=== PATIENT | male | born 1985 | race American Indian/Alaskan Native ===

== ENCOUNTER 2018-10-21 04:19 | Emergency (ER) | payer OTHER ==
[2018-10-21 04:43] VITALS: BP 124/73; PULSE 58; TEMP 97.9; BMI 28.3
[2018-10-21] MEDS ORDERED: PSEUDOEPHEDRINE HCL 60 MG TABLET ONE (05:24)
[2018-10-21] MEDS ORDERED: PSEUDOEPHEDRINE HCL 60 MG TABLET PO ONE (05:30)
--- NOTE | 2018-10-21 05:32 | PDOC ---
History of Present Illness - General Chief Complaint: Cold Symptoms Stated Complaint: NOSE CONGESTION Time Seen by Provider: 10/21/18 04:54 History Source: Patient, Spouse ( present at bedside.) Exam Limitations: No Limitations - History of Present Illness Initial Comments: HPI: 33 y/o male presenting to [facility] ER complaining of bilateral nasal congestion with sinus pressure. Pt woke from sleep and found he was unable to breath through either nare. Was able to breath through his mouth but then his throat started to hurt. Trialed Zicam nasal spray without relief. Has not trialed any other OTC medications. Denies fevers, chills, or chest pain. No sick contacts. Reports this is an acute on chronic problem for the last year. Was evaluated by PCP several months ago but failed to f/u. Has never been evaluated by ENT. Previously evaluated at this department for chest pain after snorting cocaine. States last time he used was over a year ago. Social Hx: - Non-smoker - Returned from [facility] in Apr 2018. No additional travel. 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 Found sitting upright on edge of hospital bed. Alert and oriented x4. Answered all questions appropriately and completely. Speech was non -labored, non-pressured. Head: Normocephalic. No obvious external signs of trauma. Nontender frontal and maxillary sinuses. Eyes: Sclerae white. Ears: Hearing grossly intact. Nose: No nasal discharge. Hyponasal voice. No deviated septum. Mucosa pink and well appearing. Throat: Oral cavity and pharynx normal. No inflammation, swelling, exudate, or lesions. Teeth and gingiva in good general condition. Neck: Supple, trachea is midline. No cervical or supraclavicular lymphadenopathy. Cardiovascular / Chest: Regular rate and regular rhythm. No murmur, rubs, clicks , or gallops. Peripheral pulses: radial pulses full. Respiratory: Breathing unlabored. Equal chest rise and fall. Clear to auscultation bilaterally. No stridor, no wheezing, no rhonchi. Neuro: Alert and oriented. Moving all four extremities spontaneously. Skin: [place], warm, and dry. Psych: Affect: appropriate. Mood: normal. MDM: *Reviewed vital signs, nursing notes, and prior visit documentation (if available). Previously healthy 33 y/o male presenting with bilateral nasal congestion and sinus pressure for the past few hours. H/o of similar but failed to f/u in clinic. Denies recent cocaine abuse. Afebrile. Vitals unremarkable for hypotension or tachycardia. Physical exam as described above. Suspect likely acute sinusitis. Ordered Pseudoephedrine. Pt reassessed and reports improved. Will prescribe outpatient course of pseudoephedrine. Entered ENT referral. Discussed physical exam findings with pt. Answered all questions. Provided return precautions. Pt expressed verbal understanding and agreement with plan to discharge home with outpatient follow up. Misha Buitrago M.D., PGY2 Emergency Medicine Resident Past History - Past Medical History Allergies/Adverse Reactions: Allergies Allergy/AdvReac Type Severity Reaction Status Date / Time No Known Allergies Allergy Verified 09/27/17 07:10 Home Medications: Ambulatory Orders Pseudoephedrine HCl [Sudafed] 60 mg PO BID #20 tablet 10/21/18 COPD: No - Immunization History Immunization Up to Date: Yes - Suicide/Smoking/Psychosocial Hx Smoking History: Unknown if ever smoked Have you smoked in the past 12 months: No Information on smoking cessation initiated: No Hx Alcohol Use: No Drug/Substance Use Hx: No *Physical Exam - Vital Signs Last Vital Signs Temp Pulse Resp BP Pulse Ox 97.9 F 58 L 17 124/73 98 10/21/18 04:36 10/21/18 04:36 10/21/18 04:36 10/21/18 04:36 10/21/18 04:36 ED Treatment Course - Medications Given in the ED: ED Medications Discontinued Medications Generic Name Dose Route Start Last Admin Trade Name Freq PRN Reason Stop Dose Admin Pseudoephedrine HCl 60 mg 10/21/18 05:30 10/21/18 05:26 Sudafed - PO 10/21/18 05:31 60 mg ONCE ONE Administration *DC/Admit/Observation/Transfer Diagnosis at time of Disposition: Nasal congestion - Discharge Dispostion Disposition: HOME Condition at time of disposition: Good Decision to Admit order: No - Prescriptions Prescriptions: Pseudoephedrine HCl [Sudafed] 60 mg PO BID #20 tablet - Referrals Referrals: Marita Graves MD [Primary Care Provider] - Juan Diego White MD [Staff Physician] - - Patient Instructions Printed Discharge Instructions: DI for Sinusitis Additional Instructions: You were seen today for nasal congestion. You likely have acute sinusitis. I have sent a prescription for Pseudoephedrine to your pharmacy. Take as directed on the package insert. Do not exceed the recommended dosage. Follow up with your primary care doctor within the next 3-4 days. You will need to call to make an appointment. The number is included in this packet. You can also follow up with an ENT doctor. I have placed a referral for you to see Dr. White. You will need to call to make an appointment. The number is included in this packet. Go to the nearest emergency department if your condition worsens or you feel like you need additional emergency evaluation. Print Language: ICELANDIC - Post Discharge Activity Forms/Work/School Notes: Back to Work
== END 2018-10-21 05:49 | disposition home or self-care (01) ==
LOC: SUPCPDRO 04:19 → JER 04:19
DX: J34.89 Other specified disorders of nose and nasal sinuses (principal)
CPT/HCPCS: 99281-25

== ENCOUNTER 2018-12-25 12:59 | Inpatient (IN) | payer OTHER ==
[2018-12-25] MEDS ORDERED: IBUPROFEN 600 MG TABLET (FP) PO ONE ×2 (14:18→14:28)
[2018-12-25] MEDS ORDERED: SODIUM CHLORIDE 1,000 ML IV STA (14:18)
--- NOTE | 2018-12-25 14:18 | PDOC ---
History of Present Illness - General Chief Complaint: Edema Stated Complaint: LT FOOT PAIN Time Seen by Provider: 12/25/18 13:29 History Source: Patient Exam Limitations: No Limitations - History of Present Illness Initial Comments: 12/25/18 14:13 33 yo male pmh HLD and R forefoot amputation 2016 after an accident presents to the ED with 1 week of F/C, cough, yellow sputum production (with new blood tinge this am) along with right foot swelling, redness and pain. Pt states he was in [facility] for work, URI symptoms began prior to return to the [facility] (returned 1 week ago), has tried theraflu however symptoms have progressively worsened and now admits to bright red blood tinge sputum this am. Pt states he fell [place] the plane leading to right medial ankle pain and states swelling, pain and redness/warmth worsening over the past week. Past History - Past Medical History Allergies/Adverse Reactions: Allergies Allergy/AdvReac Type Severity Reaction Status Date / Time No Known Allergies Allergy Verified 09/27/17 07:10 Home Medications: Ambulatory Orders Pseudoephedrine HCl [Sudafed] 60 mg PO BID #20 tablet 10/21/18 COPD: No - Immunization History Immunization Up to Date: Yes - Psycho Social/Smoking Cessation Hx Smoking History: Current every day smoker Have you smoked in the past 12 months: No Information on smoking cessation initiated: Yes Hx Alcohol Use: No Drug/Substance Use Hx: No Review of Systems - Review of Systems Constitutional: Yes: Chills, Fever HEENTM: Yes: Other (bloody sputum, cough). No: Ear Discharge, Nose Congestion Respiratory: Yes: Productive cough. No: Shortness of Breath, Wheezing Cardiac (ROS): Yes: Edema (right stump). No: Chest Pain ABD/GI: No: Constipated, Diarrhea, Nausea, Vomiting : No: Burning, Dysuria, Frequency, Flank Pain Musculoskeletal: No: Back Pain Integumentary: No: Change in Color Neurological: No: Headache, Numbness, Paresthesia, Weakness *Physical Exam - Vital Signs Last Vital Signs Temp Pulse Resp BP Pulse Ox 97.5 F L 89 20 153/94 99 12/25/18 13:02 12/25/18 13:02 12/25/18 13:02 12/25/18 13:02 12/25/18 13:02 - Physical Exam General Appearance: Yes: Nourished, Appropriately Dressed HEENT: positive: EOMI, Pharynx Normal, Hearing Grossly Normal, Other (hemoptysis ). negative: Sinus Tenderness Neck: positive: Supple. negative: Carotid bruit Respiratory/Chest: positive: Lungs Clear, Normal Breath Sounds. negative: Respiratory Distress, Rapid RR, Crackles, Rales, Rhonchi, Stridor, Wheezing Cardiovascular: positive: Regular Rhythm, Regular Rate, S1, S2. negative: Edema , JVD, Murmur Vascular Pulses: Dorsalis-Pedis (R): 4+, Doralis-Pedis (L): 4+ Gastrointestinal/Abdominal: positive: Flat, Soft. negative: Pulsatile Mass, Distended, Guarding, Rebound, Tenderness Musculoskeletal: negative: CVA Tenderness Extremity: positive: Normal Capillary Refill, Normal Inspection, Normal Range of Motion Integumentary: positive: Dry, Warm, Other (erythema to dorsum of foot with tenderness and small chronic appearing punctate wound. No area of fluctuance or drainage ) Neurologic: positive: Fully Oriented, Alert, Normal Mood/Affect, Normal Response , Motor Strength 07/21 ED Treatment Course - LABORATORY CBC & Chemistry Diagram: 12/25/18 14:15 12/25/18 14:15 - RADIOLOGY Radiology Studies Ordered: Category Date Time Status LOWER EXTREMITY CT W/O CONTR [CT] Stat CT Scan 12/25/18 14:02 Ordered CHEST X-RAY PORTABLE* [RAD] Stat Radiology 12/25/18 13:59 Ordered Medical Decision Making - Medical Decision Making 12/25/18 14:28 33 yo male pmh HLD and R forefoot amputation 2016 after an accident presents to the ED with 1 week of F/C, cough, yellow sputum production (with new blood tinge this am) along with right foot swelling, redness and pain. Pt states he was in [facility] for work, URI symptoms began prior to return to the [place] (returned 1 week ago), has tried theraflu however symptoms have progressively worsened and now admits to bright red blood tinge sputum this am. Pt states he fell on the plane leading to right medial ankle pain and states swelling, pain and redness/warmth worsening over the past week. plan to weight d-dimer results, review CXR and determine if CTA of chest required for PE r/o vs PNA D dimer neg WBC 11.7 12/25/18 18:[address] Henson states pt requires admission for infection of RLE with antibiotics Consulted Dr. Pimentel in Podiatry, states he will come assess pt in the ED and would like an MRI with Contrast done to r/o osteo/abscess and will take to OR for I&D in the AM if needed Case presented to Dr. Garcia, agrees to have pt accepted to med surg Discharge - Discharge Information Problems reviewed: Yes Clinical Impression/Diagnosis: Infection (chronic) of amputation stump Condition: Stable - Admission Yes - Follow up/Referral - Patient Discharge Instructions - Post Discharge Activity
[2018-12-25 14:34] LABS: BASO % 0.4 % (0-2.0); EOS % 0.1 % (0-4.5); HEMATOCRIT 43.9 % (35.4-49); LYMPH % 6.4 % (8-40); MCH 29.8 pg (25.7-33.7); MCHC 34.3 g/dl (32.0-35.9); MEAN PLT VOLUME 9.4 fl (7.5-11.1); MONO % 6.8 % (3.8-10.2); NEUT % 86.3 % (42.8-82.8); PLATELET COUNT 313 K/MM3 (134-434); RBC 5.05 M/mm3 (4.00-5.60); RDW 13.6 % (11.9-15.9); WHITE BLOOD COUNT 11.7 K/mm3 (4.0-10.0)
[2018-12-25] MEDS ORDERED: ALBUTEROL SO4 2.5/IPRATROPIUM 0.5 INH SOL 3 ML VIAL.NEB. NEB ONE ×2 (14:35→14:49)
[2018-12-25] MEDS ORDERED: ACETAMINOPHEN 325 MG TABLET (FP) PO ONE (14:37)
--- NOTE | 2018-12-25 14:37 | PDOC ---
Documentation entered by Josiah John SCRIBE, acting as scribe for Faye Cole MD. Faye Cole MD: This documentation has been prepared by the Dora murillo Xhesika, SCRIBE, under my direction and personally reviewed by me in its entirety. I confirm that the documentation accurately reflects all work, treatment, procedures, and medical decision making performed by me. Attending Attestation - Resident Resident Name: Alex Cruz - ED Attending Attestation I have performed the following: I have examined & evaluated the patient, The case was reviewed & discussed with the resident, I agree w/resident's findings & plan - HPI HPI: 12/25/18 14:23 The patient is a 33 year old male with a significant past medical history of HLD and R foot amputation (secondary to forklift accident in 2016) who presents to the ED with 1 week of subjective fever, chills, productive cough and R foot pain and swelling. cough notable for progressive blood tinged and yellow mucus. Patient notes he had a trip to [facility] for work, came back a week ago, however, his symptoms began prior to his return to the [place]. Pt notes he tried theraflu with no improvement of symptoms. he tripped with his prosthesis in place while at the airport ~ 1 week ago, since then right stump pain and swelling. Allergies: None Past Medical History: HLD and R foot amputation Social history: Lives with family. Current everyday smoker Surgical history: S/p R foot amputation secondary to forklift accident in 2016 Meds: none 12/25/18 14:35 - Physicial Exam PE: 12/25/18 14:24 Agree with the resident's HPI and PE as documented in the electronic medical record. NAD, well appearing, EOMI, PERRL, nl conjunctiva, anicteric; neck supple. lungs diminished breath sounds, scant wheeze on expiration. RRR, abdomen soft nontender. Back nontender. MEAD x4, no focal neuro deficits. No peripheral edema. normal color for ethnicity, WWP. no calf tenderness. no LE edema. soft compartment of right stump. Right distal foot amputation, tender to palpation over the stump with palp swelling, old surgical scars present. No drainage or wounds appreciated. 12/25/18 14:33 12/25/18 14:58 12/25/18 18:31 - Medical Decision Making 12/25/18 14:37 Vital Signs Temp Pulse Resp BP Pulse Ox 97.5 F L 89 20 153/94 99 12/25/18 13:02 12/25/18 13:02 12/25/18 13:02 12/25/18 13:02 12/25/18 13:02 Differential diagnosis includes viral syndrome, infection, bronchiectasis, bronchitis, pneumonia, pleurisy. Soft tissue infection, stump wound, contusion , hematoma. Vital signs are within normal limits, afebrile, hemodynamically appropriate. Basic labs and lites are also within normal limits, cultures are pending. X- ray imaging, dimer to evaluate for possible PE given recent travel and now hemoptysis but symptoms are more consistent with a infection given he has cough and subjective fevers. Chest x-ray will also check for active pulmonary TB. neg for mass, infection/infiltrate or effusion, normal cardiac silhouette xray s/p amputation at midfoot, no collection, no bony erosions labs and lytes - neg dimer, unlikely PE given analgesia, duoneb, reassess, abx CT foot with ?fluid collection vs abscess vs phlegmon. IV ancef and vancomycin for empiric coverage, including MRSA admit for pain control, foot infection, possible I&D, medical management - call to brim setter Dr Dela Cruz, will come to eval and decide on plan/intervention admit to Dr Garcia service. 12/25/18 18:29 Heart Score/ECG Review #1 ECG reviewed & interpreted by me at: 15:40 General ECG Interpretation: Sinus Rhythm, Normal Rate, Normal Intervals Compared to previous ECG there are: Previous ECG unavail 12/25/18 16:17 nonspecific T wave abnormalities in III only, no ST elevations or depressions
[2018-12-25] MEDS ORDERED: ACETAMINOPHEN 325 MG TABLET (FP) ONE (14:49)
[2018-12-25] MEDS ORDERED: morphine CARPU-JECT 4 MG/1 ML DISP.SYRIN IVPUSH ONE (14:57)
[2018-12-25 15:01] LABS: ALBUMIN 3.8 g/dl (3.4-5.0); BILIRUBIN,TOTAL 0.5 mg/dL (0.2-1); BLOOD UREA NITROGEN 19.7 mg/dL (7-18); CALCIUM 9.4 mg/dL (8.5-10.1); POTASSIUM 4.3 mmol/L (3.5-5.1); TOT PROT 8.4 g/dl (6.4-8.2)
[2018-12-25 15:18] LABS: ERYTHROCYTE SEDIMENTATION RATE 77 mm/hr (0-10)
[2018-12-25] MEDS ORDERED: morphine SULFATE 4 MG/ML VIAL ONE (15:23)
[2018-12-25] MEDS ORDERED: HYDROmorphone HCL CARPU-JECT 2 MG/1 ML DISP.SYRIN IVPUSH ONE (16:58)
[2018-12-25] MEDS ORDERED: KETOROLAC TROMETHAMINE 15 MG/ML VIAL IVPUSH ONE (16:58)
[2018-12-25] MEDS ORDERED: VANCOMYCIN 1,500 MG in DEXTROSE 5%-WATER - 250 ML IVPB ONE (16:59)
[2018-12-25] MEDS ORDERED: HYDROmorphone HCl 2 MG/ML VIAL ONE (17:15)
[2018-12-25] MEDS ORDERED: KETOROLAC TROMETHAMINE 15 MG/ML VIAL ONE (17:15)
[2018-12-25] MEDS ORDERED: VANCOMYCIN HCL 1,500 MG in DEXTROSE 5%-WATER - 250 ML IVPB ONE (18:41)
[2018-12-25] MEDS ORDERED: VANCOMYCIN HCL 1,500 MG in DEXTROSE 5%-WATER - 500 ML IVPB ONE (18:42)
--- NOTE | 2018-12-25 19:22 | CONSULT ---
Consult Consult Specialty:: PODIATRY Referred by:: maureen Reason for Consultation:: Right foot possible abscess - History of Present Illness Chief Complaint: 33 y/o male presents and seen inthe ER with swelling and severe pain on the right foot. Also cmplaints of yellow and blood tinged sputum. States since roughly 1 weekt he foot has started having severe pain and being swolen and red. Is s/p traumatic TMA with donor flap placement which has healed nicely. States is needing a SULLY as well to release pressure as the flap regularly breaks down but this time has continued pain and sweling for longer than usual. Denies any other complaints. - History Source History Provided By: Patient Limitations to Obtaining History: No Limitations - Alcohol/Substance Use Hx Alcohol Use: No - Smoking History Smoking history: Current every day smoker Have you smoked in the past 12 months: No Home Medications - Allergies Allergies/Adverse Reactions: Allergies Allergy/AdvReac Type Severity Reaction Status Date / Time No Known Allergies Allergy Verified 09/27/17 07:10 - Home Medications Home Medications: Ambulatory Orders Pseudoephedrine HCl [Sudafed] 60 mg PO BID #20 tablet 10/21/18 Review of Systems - Review of Systems Musculoskeletal: reports: Other (Right: traumuatic TMA, donor flap noted going from plantar distal site up onto the dorsum of ankle, induration noted to the plantar flap of the graft with a small wound noted distal plantarly no purulence noted, plantar medially along healed incision with severe POP some level of fluctuance, mild erythema, mild edema, no streaking, no drainage noted at this time. foot warm to touch and palpable pulses.) Neurological: reports: No Symptoms Physical Exam Vital Signs: Vital Signs Temperature 97.5 F L 12/25/18 13:02 Pulse Rate 64 12/25/18 16:45 Respiratory Rate 18 12/25/18 16:45 Blood Pressure 120/71 12/25/18 16:45 O2 Sat by Pulse Oximetry (%) 98 12/25/18 16:45 Labs: CBC, BMP 12/25/18 14:15 12/25/18 14:15 Assessment/Plan A: Possible abscess right foot P: Evaluated and reviewed MRI with contrast has been ordered to eval for abscess and will evaluate tomorrow CT to me inconclusive for origin Xray negative for any gas Wbc 11.7 Iv abx per ID Will follow up tomorrow and if + for actual abscess depending on area can do bedside needle drainage vs taking to the OR for open I and D on sunday AM Will follow thank you for this consult.
--- NOTE | 2018-12-25 19:38 | HP ---
Admitting History and Physical - Primary Care Physician PCP: Iram Garcia - Admission History of Present Illness: 33 yo male pmh HLD and R forefoot amputation 2016 after an accident presents to the ED with 1 week of F/C, cough, yellow sputum production (with new blood tinge this am) along with right foot swelling, redness and pain. Pt states he was in [facility] for work, URI symptoms began prior to return to the [facility] (returned 1 week ago), has tried theraflu however symptoms have progressively worsened and now admits to bright red blood tinge sputum this am. Pt states he fell on the plane leading to right medial ankle pain and states swelling, pain and redness/warmth worsening over the past week. - Smoking History Smoking history: Current every day smoker Have you smoked in the past 12 months: No - Alcohol/Substance Use Hx Alcohol Use: No Home Medications - Allergies Allergies/Adverse Reactions: Allergies Allergy/AdvReac Type Severity Reaction Status Date / Time No Known Allergies Allergy Verified 09/27/17 07:10 - Home Medications Home Medications: Ambulatory Orders NK [No Known Home Medication] 12/25/18 Physical Examination Vital Signs: Vital Signs Temperature 97.5 F L 12/25/18 13:02 Pulse Rate 64 12/25/18 16:45 Respiratory Rate 18 12/25/18 16:45 Blood Pressure 120/71 12/25/18 16:45 O2 Sat by Pulse Oximetry (%) 98 12/25/18 16:45 Constitutional: Yes: No Distress HENT: Yes: Atraumatic Neck: Yes: Supple Cardiovascular: Yes: Regular Rate and Rhythm Respiratory: Yes: CTA Bilaterally Gastrointestinal: Yes: Normal Bowel Sounds Extremities: Yes: Other (R foot / stump abcess) Neurological: Yes: Alert, Oriented Labs: CBC, BMP 12/25/18 14:15 12/25/18 14:15 Problem List - Problems (1) Infection (chronic) of amputation stump Assessment/Plan: for aspiration of abcess on iv bax prn pain meds Code(s): T87.40 - INFECTION OF AMPUTATION STUMP, UNSPECIFIED EXTREMITY (2) Nasal congestion Code(s): R09.81 - NASAL CONGESTION Assessment/Plan Laboratory Tests 12/25/18 12/25/18 12/25/18 14:15 14:15 14:15 WBC 11.7 H RBC 5.05 Hgb 15.0 Hct 43.9 MCV 87.0 MCH 29.8 MCHC 34.3 RDW 13.6 Plt Count 313 D MPV 9.4 Absolute Neuts (auto) 10.1 H Neutrophils % 86.3 H Lymphocytes % 6.4 L D Monocytes % 6.8 Eosinophils % 0.1 Basophils % 0.4 Nucleated RBC % 0 ESR 77 H D-Dimer Sodium 139 Potassium 4.3 Chloride 103 Carbon Dioxide 30 Anion Gap 6 L BUN 19.7 H Creatinine 1.0 Est GFR (CKD-EPI)AfAm 115.72 Est GFR (CKD-EPI)NonAf 99.85 Random Glucose 92 Calcium 9.4 Total Bilirubin 0.5 AST 25 ALT 34 Alkaline Phosphatase 118 H C-Reactive Protein 12.4 H Total Protein 8.4 H Albumin 3.8 12/25/18 14:15 WBC RBC Hgb Hct MCV MCH MCHC RDW Plt Count MPV Absolute Neuts (auto) Neutrophils % Lymphocytes % Monocytes % Eosinophils % Basophils % Nucleated RBC % ESR D-Dimer 322 Sodium Potassium Chloride Carbon Dioxide Anion Gap BUN Creatinine Est GFR (CKD-EPI)AfAm Est GFR (CKD-EPI)NonAf Random Glucose Calcium Total Bilirubin AST ALT Alkaline Phosphatase C-Reactive Protein Total Protein Albumin Active Medications Generic Name Dose Route Start Last Admin Trade Name Freq PRN Reason Stop Dose Admin Cefazolin Sodium 1 gm in 50 mls @ 100 mls/hr 12/26/18 10:00 Ancef 1 Gm Premixed Ivpb - IVPB DAILY RICHAR Vancomycin HCl 1,500 mg/ 500 mls @ 250 mls/2 hr 12/25/18 18:42 12/25/18 19:04 Dextrose IVPB 12/25/18 22:40 250 mls/2 hr ONCE ONE Administration Protocol Active Medications Generic Name Dose Route Start Last Admin Trade Name Freq PRN Reason Stop Dose Admin Acetaminophen 650 mg 12/26/18 21:29 Tylenol - PO Q6H PRN FEVER Fentanyl 50 mcg 12/26/18 21:29 Sublimaze Injection - IVPUSH [id number] PRN PAIN-PACU ORDER X 4 DOSES ONLY Heparin Sodium (Porcine) 5,000 unit 12/26/18 22:00 12/27/18 10:03 Heparin - SQ 5,000 unit BID RCIHAR Administration Hydromorphone HCl 2 mg 12/26/18 21:29 12/27/18 15:19 Dilaudid Vial - IVPB 2 mg Q4H PRN Administration PAIN 4-8 Lactated Ringer's 1,000 mls @ 75 mls/hr 12/26/18 21:29 12/26/18 21:40 Lactated Ringers Solution IV 0 mls ASDIR RICHAR Administration Cefazolin Sodium 1 gm in 50 mls @ 100 mls/hr 12/27/18 18:00 12/27/18 17:18 Ancef 1 Gm Premixed Ivpb - IVPB 100 mls/hr Q8H-IV RICHAR Administration Ondansetron HCl 4 mg 12/26/18 21:29 Zofran Injection IVPUSH Q6H PRN NAUSEA AND/OR VOMITING Oxycodone HCl 5 mg 12/26/18 21:29 12/27/18 10:12 Roxicodone - PO 5 mg Q4H PRN Administration PAIN LEVEL 1-3
[2018-12-25] MEDS ORDERED: ACETAMINOPHEN 325 MG TABLET (FP) PO PRN (19:39)
[2018-12-25] MEDS: HEPARIN NA (PORCINE) 5,000 UNITS/ML 1ML VIAL SQ SCH (22:37)
[2018-12-25] MEDS: HYDROmorphone HCl 2 MG/ML VIAL IVPB PRN (23:54)
[2018-12-26 00:11] VITALS: BMI 27.4
[2018-12-26] MEDS: HYDROmorphone HCl 2 MG/ML VIAL IVPB PRN ×2 (06:36→10:48)
[2018-12-26 09:08] LABS: BASO % 0.4 % (0-2.0); EOS % 0.2 % (0-4.5); HEMATOCRIT 42.2 % (35.4-49); HEMOGLOBIN 14.6 GM/dL (11.7-16.9); LYMPH % 9.2 % (8-40); MCH 30.3 pg (25.7-33.7); MCHC 34.6 g/dl (32.0-35.9); MEAN CELL VOLUME 87.6 fl (80-96); MEAN PLT VOLUME 9.3 fl (7.5-11.1); NEUT % 85.2 % (42.8-82.8); PLATELET COUNT 311 K/MM3 (134-434); RBC 4.81 M/mm3 (4.00-5.60); RDW 13.7 % (11.9-15.9); WHITE BLOOD COUNT 8.9 K/mm3 (4.0-10.0)
[2018-12-26] MEDS ORDERED: CEFAZOLIN 1 GM/D5W 1 GM/50 ML BAG IVPB SCH (10:00)
--- NOTE | 2018-12-26 10:22 | PN ---
Progress Note (short form) - Note Progress Note: PODIATRY 33 y/o male s/p right foot traumatic TMA after accident seen with pain and swelling of the right stump site. Pain mostly just proximal to the flap placement. had MRI done last night. States pain is decreased and redness down but still uncomfortable. Denies any f/c/n/v/sob. O: Right foot with free graft site with decreased swelling, compelte neuropathy of the free graft, just plantar proximal at the incision line mild erythema and pain on palpation in that area, no open wound, no purulence, no streaking, no ascending cellulitis; erythema mildly improved today A: Cellulitis of TMA stump//Free graft P: Evaluated and reveiwed MRI read not yet done yet; personal review at this time shows alot of inflammation and edema in the free graft Will follow today and await read of the MRI; if true abscess is seen will plan for the OR tomorrow to open and flush Cont Iv abx per ID. Will follow.
[2018-12-26] MEDS: HEPARIN NA (PORCINE) 5,000 UNITS/ML 1ML VIAL SQ SCH ×2 (10:50→22:19)
[2018-12-26 11:15] LABS: ALBUMIN 3.7 g/dl (3.4-5.0); BILIRUBIN,TOTAL 0.3 mg/dL (0.2-1); BLOOD UREA NITROGEN 16.3 mg/dL (7-18); CALCIUM 9.1 mg/dL (8.5-10.1); CREATININE 0.9 mg/dL (0.55-1.3); POTASSIUM 4.2 mmol/L (3.5-5.1); TOT PROT 7.9 g/dl (6.4-8.2)
--- NOTE | 2018-12-26 12:20 | EKG ---
Test Reason : Blood Pressure : / mmHG Vent. Rate : 074 BPM Atrial Rate : 074 BPM P-R Int : 118 ms QRS Dur : 082 ms QT Int : 376 ms P-R-T Axes : 046 049 023 degrees QTc Int : 417 ms POOR DATA QUALITY, INTERPRETATION MAY BE ADVERSELY AFFECTED NORMAL SINUS RHYTHM NORMAL ECG WHEN COMPARED WITH ECG OF 27-SEP-2017 06:45, NO SIGNIFICANT CHANGE WAS FOUND Confirmed by JOSUE RODRIGUEZ, AN ([id number]) on 12/26/2018 12:20:05 PM Referred By: Confirmed By:AN SALAS MD
--- NOTE | 2018-12-26 14:00 | CON.ID ---
Consult Consult Specialty:: infectious diseases Referred by:: Reason for Consultation:: cellulitis of the amputated foot,pain - History of Present Illness Chief Complaint: swelling of the foot ,pain and tenderness History of Present Illness: 33 y/o male presents and seen inthe ER with swelling and severe pain on the right foot. patient also mentions that he has some sputum which is blood tinged pain and swelling ahs been going on for some time and the leg became red and the patient decided to come to the hospital Is s/p traumatic TMA with donor flap placement which has healed nicely. States is needing a SULLY as well to release pressure as the flap regularly breaks down but this time has continued pain and swelling for longer than usual. Denies any other complaints. patient also has a small opening on the foot which according to him does not drain anything - History Source History Provided By: Patient Limitations to Obtaining History: No Limitations - Alcohol/Substance Use Hx Alcohol Use: No - Smoking History Smoking history: Never smoked Have you smoked in the past 12 months: No Home Medications - Allergies Allergies/Adverse Reactions: Allergies Allergy/AdvReac Type Severity Reaction Status Date / Time No Known Allergies Allergy Verified 09/27/17 07:10 - Home Medications Home Medications: Ambulatory Orders NK [No Known Home Medication] 12/25/18 Review of Systems - Review of Systems Constitutional: reports: No Symptoms Eyes: reports: No Symptoms HENT: reports: No Symptoms Neck: reports: No Symptoms Cardiovascular: reports: No Symptoms Respiratory: reports: No Symptoms Gastrointestinal: reports: No Symptoms Genitourinary: reports: No Symptoms Musculoskeletal: reports: Muscle Pain Integumentary: reports: Erythema, Other Neurological: reports: No Symptoms Endocrine: reports: No Symptoms Hematology/Lymphatic: reports: No Symptoms Psychiatric: reports: No Symptoms Physical Exam Vital Signs: Vital Signs Temperature 98.0 F 12/26/18 05:50 Pulse Rate 81 12/26/18 10:00 Respiratory Rate 18 12/26/18 10:00 Blood Pressure 143/83 12/26/18 10:00 O2 Sat by Pulse Oximetry (%) 98 12/25/18 23:39 Constitutional: Yes: Well Nourished, Calm, Mild Distress Eyes: Yes: Conjunctiva Clear HENT: Yes: Atraumatic, Normocephalic Neck: Yes: Supple, Trachea Midline Cardiovascular: Yes: Regular Rate and Rhythm Respiratory: Yes: Regular, CTA Bilaterally Gastrointestinal: Yes: Normal Bowel Sounds, Soft Musculoskeletal: Yes: WNL Extremities: Yes: Erythema (at the amputated site), Other Wound/Incision: Yes: Other (a small spot on the plantar aspect worry is if the infection is collecting) Neurological: Yes: Alert, Oriented Psychiatric: Yes: Alert, Oriented Labs: CBC, BMP 12/26/18 08:27 12/26/18 08:27 Assessment/Plan after examining the foot i am worried that there might be a collection and the spot is from where he might have drained also cellulitis noted will start him on abx and also i think patient should get and mri of the foot to see if there is any collection once we have the final results we will decide further plan
--- NOTE | 2018-12-26 14:02 | PN ---
Progress Note, Physician History of Present Illness: patient c/o of severe pain podiatry note noted - Current Medication List Current Medications: Active Medications Acetaminophen (Tylenol -) 650 mg PO Q6H PRN PRN Reason: FEVER Heparin Sodium (Porcine) (Heparin -) 5,000 unit SQ BID [facility] Last Admin: 12/26/18 10:50 Dose: 5,000 unit Hydromorphone HCl (Dilaudid Vial -) 1 mg IVPB Q4H PRN PRN Reason: PAIN LEVEL 4-6 Last Admin: 12/26/18 10:48 Dose: 1 mg Cefazolin Sodium (Ancef 1 Gm Premixed Ivpb -) 1 gm in 50 mls @ 100 mls/hr IVPB DAILY [facility] Last Admin: 12/26/18 10:50 Dose: 100 mls/hr - Objective Vital Signs: Vital Signs Temperature 98.0 F 12/26/18 05:50 Pulse Rate 81 12/26/18 10:00 Respiratory Rate 18 12/26/18 10:00 Blood Pressure 143/83 12/26/18 10:00 O2 Sat by Pulse Oximetry (%) 98 12/25/18 23:39 Constitutional: Yes: No Distress, Calm Cardiovascular: Yes: Regular Rate and Rhythm Respiratory: Yes: Regular, CTA Bilaterally Gastrointestinal: Yes: Normal Bowel Sounds, Soft Musculoskeletal: Yes: WNL Extremities: Yes: Erythema, Other Neurological: Yes: Alert, Oriented Psychiatric: Yes: Alert, Oriented Labs: CBC, BMP 12/26/18 08:27 12/26/18 08:27 Assessment/Plan continue abx await for aspiration of the collection rest as per the team
[2018-12-26] MEDS ORDERED: HYDROmorphone HCl 2 MG/ML VIAL IVPB PRN (14:14)
[2018-12-26] MEDS ORDERED: LIDOCAINE HCL 2% (20ML MULTI-DOSE VIAL) NR ONE ×3 (14:15→21:29)
--- NOTE | 2018-12-26 15:05 | CONSULT ---
Consult Consult Specialty:: Podiatry Reason for Consultation:: Emergent cellulitis abscess right foot-2nd opinion. - History of Present Illness Chief Complaint: Cellulitis abscess right foot. History of Present Illness: Has had a taumatic amputation in 2016. Fork lift crushed his foot. Fell 2 weeks ago. Presented to ER with red hot swollen foot with abscess. - History Source History Provided By: Patient - Alcohol/Substance Use Hx Alcohol Use: No - Smoking History Smoking history: Never smoked Have you smoked in the past 12 months: No Home Medications - Allergies Allergies/Adverse Reactions: Allergies Allergy/AdvReac Type Severity Reaction Status Date / Time No Known Allergies Allergy Verified 09/27/17 07:10 - Home Medications Home Medications: Ambulatory Orders NK [No Known Home Medication] 12/25/18 Physical Exam Vital Signs: Vital Signs Temperature 98.0 F 12/26/18 14:11 Pulse Rate 58 L 12/26/18 14:11 Respiratory Rate 18 12/26/18 10:00 Blood Pressure 118/73 12/26/18 14:11 O2 Sat by Pulse Oximetry (%) 98 12/25/18 23:39 Musculoskeletal: Yes: Other (+cellulitis ascending right foot, +abscess right foot, +severe tenderness) Labs: CBC, BMP 12/26/18 08:27 12/26/18 08:27 Assessment/Plan abscess cellulitis Called his [employer] Portal Developer and discussed cased and we agreed that patient needs I&D today rather than tomorrow. Patient had last meal around 12pm. Will sign off case at this time. Please re-consult if necessary. NPO.
--- NOTE | 2018-12-26 18:20 | PN ---
Progress Note, Physician - Current Medication List Current Medications: Active Medications Acetaminophen (Tylenol -) 650 mg PO Q6H PRN PRN Reason: FEVER Heparin Sodium (Porcine) (Heparin -) 5,000 unit SQ BID [facility] Last Admin: 12/26/18 10:50 Dose: 5,000 unit Hydromorphone HCl (Dilaudid Vial -) 2 mg IVPB Q4H PRN PRN Reason: PAIN 4-8 Last Admin: 12/26/18 14:24 Dose: 2 mg Cefazolin Sodium (Ancef 1 Gm Premixed Ivpb -) 1 gm in 50 mls @ 100 mls/hr IVPB DAILY [facility] Last Admin: 12/26/18 10:50 Dose: 100 mls/hr - Objective Vital Signs: Vital Signs Temperature 98.0 F 12/26/18 14:11 Pulse Rate 58 L 12/26/18 14:11 Respiratory Rate 18 12/26/18 10:00 Blood Pressure 118/73 12/26/18 14:11 O2 Sat by Pulse Oximetry (%) 98 12/25/18 23:39 Constitutional: Yes: No Distress HENT: Yes: Atraumatic Neck: Yes: Supple Cardiovascular: Yes: Regular Rate and Rhythm Respiratory: Yes: CTA Bilaterally Gastrointestinal: Yes: Normal Bowel Sounds Extremities: Yes: Other (R foot abcess) Neurological: Yes: Alert, Oriented Labs: CBC, BMP 12/26/18 08:27 12/26/18 08:27 Problem List - Problems (1) Infection (chronic) of amputation stump Assessment/Plan: for aspiration of abcess d/w podiatry Code(s): T87.40 - INFECTION OF AMPUTATION STUMP, UNSPECIFIED EXTREMITY (2) Nasal congestion Code(s): R09.81 - NASAL CONGESTION
[2018-12-26] MEDS ORDERED: oxyCODONE HCL 5 MG TABLET PO PRN (19:54)
[2018-12-26] MEDS ORDERED: ONDANSETRON 4 MG/2 ML VIAL IVPUSH PRN ×2 (19:54→21:29)
[2018-12-26] MEDS ORDERED: LACTATED RINGERS SOLUTION 1,000 ML IV SCH ×2 (20:00→21:29)
[2018-12-26] MEDS ORDERED: MIDAZOLAM HCL 2 MG/2 ML SINGLE DOSE VIAL ONE (20:16)
[2018-12-26] MEDS ORDERED: ceFAZolin SODIUM 1 GM VIAL IVPB ONE (20:25)
[2018-12-26] MEDS ORDERED: LIDOCAINE HCL 2% (50ML VIAL) INF ONE (20:32)
[2018-12-26] MEDS ORDERED: PROPOFOL 20 ML ONE (20:39)
[2018-12-26] MEDS ORDERED: BACITRACIN 50,000 UNITS VIAL TP ONE (20:40)
[2018-12-26] MEDS ORDERED: BUPIVACAINE HCL/PF 0.5% (5 MG/ML) 30 ML VIAL IJ ONE (20:50)
--- NOTE | 2018-12-26 21:00 | OP ---
Operative Note - Note: Operative Date: 12/26/18 Pre-Operative Diagnosis: right foot abscess Operation: right foot incision and drainge. Findings: see dictation Post-Operative Diagnosis: Same as Pre-op Surgeon: Bret Pimentel Anesthesia: Local, MAC Specimens Removed: wound culture Estimated Blood Loss (mls): 10 Operative Report Dictated: Yes
--- NOTE | 2018-12-26 22:26 | OP ---
DATE OF OPERATION: 12/26/2018 PREOPERATIVE DIAGNOSIS: Right foot abscess. POSTOPERATIVE DIAGNOSIS: Right foot abscess. PROCEDURE PERFORMED: Right foot incision and drainage. SURGEON: Bret Pimentel DPM ANESTHESIA: Local with IV sedation. INDICATION: The patient is a 33-year-old male with the above mentioned diagnosis. The patient requires immediate surgical intervention for the conditions listed above. After careful explanation of the risks, benefits, and complications for the proposed procedure including graft failure, the patient signed the consent form. All questions and concerns were addressed at this time prior to taking patient to the OR. P.o. status was verified. Preoperative antibiotics were given. OPERATIVE PROCEDURE: Patient brought to operating room table and placed on operating table in the supine position. A pneumatic ankle tourniquet was utilized on the induction of IV sedation, local injection of 10 mL of 2% lidocaine plain was injected into the patient's nerve without complication. Following local anesthetic, the left foot was prepped and draped in normal sterile manner and the procedure began. Procedure number 1: Right foot incision and drainage at this time with the distal plantar aspect of the patient's right foot. It should be noted he has already had a traumatic transmetatarsal amputation with a free flap placement across the top of it at the most plantar aspect of this free flap, there was noted to be a large area, increasingly large abscess with some streaking erythema going along the mid foot plantarly at this time. An incision was made directly overlying the old incision, placement along where the flap met the plantar skin on the bottom of the foot. Immediately upon incising the skin on the plantar aspect, roughly 15 mL of seropurulent material drained out. The incision was then carried medially and laterally to the medial aspect of the foot and across the roughly central plantar aspect of the foot. The incision was then opened and roughly another 5 mL of purulent material was then expressed from the area; using manual decompression, all remaining pockets of seropurulence were then decompressed, and then at this time attention was directed to the plantar medial aspect of the foot, where there is noted to be some erythema. Utilizing Metzenbaum scissors and Premium elevator, the plantar aspect of the foot was explored, but there was no further purulent drainage to be noted at this time. It should be noted that unfortunately the flap viability on the plantar aspect is going to be questionable due to the breakdown in the underlying tissues from the infection which seems to have been present for quite a number of days and is just recently worsened. Following manual decompression, the wound was then copiously flushed with pulse lavage with bacitracin mixed 3 L of fluid was flushed to the bottom of the foot. Prior this, it should be noted wound cultures were obtained and sent for microbiology. Deep wound was then packed with iodoform packing and partially closed with 3-0 nylon, leaving open to tolerated anesthesia and procedure well. Patient was given 10 mL of 0.5% Marcaine plain block following the procedure, transferred to recovery room with vital signs stable and neurovascular status intact to right foot. The patient will need to be followed closely over the next couple of days for any further abscess formation versus graft failure. MARTHA TUCKER/[id number]
[2018-12-26] MEDS: oxyCODONE HCL 5 MG TABLET PO PRN (22:51)
[2018-12-27] MEDS: HYDROmorphone HCl 2 MG/ML VIAL IVPB PRN ×3 (03:07→20:01)
--- NOTE | 2018-12-27 08:04 | PN ---
Progress Note (short form) - Note Progress Note: 33 y /o male POD 1 right foot I and D at past amputation site. States feeling much better today. Pain level far decreased. Denies any other complaints. Is wondering about flap survivability. O: Incision plantar left foot with opening and packing in place centrally, packing pulled, no further purulence noted, mild erythema stillin plantar arch but no progression and much less POP noted, no streaking no malodor A: 33 y/o POD 1 right foot I and D P: Evaluated and reviewed will need to closely track progression and if any worsening again of redness may need secondary flush but today looking much improved will need to track flap viability; discussed with him and he will need f/u with wound care as well as should have f/u with plastic surgeon patient clinically improved follow cultures IV abx per ID will follow.
--- NOTE | 2018-12-27 08:45 | PN ---
Progress Note (short form) - Note Progress Note: POD1 s/p right foot debridement of infected amputation stump, under GA. Doing well today; pain is well controlled, VSS, no complaints noted. No anesthetic issues/complications noted.
[2018-12-27] MEDS ORDERED: DEXTROSE 5%-WATER - 50 ML IVPB ONE (09:59)
[2018-12-27] MEDS ORDERED: ceFAZolin SODIUM 1 GM VIAL ONE (09:59)
[2018-12-27] MEDS ORDERED: CEFAZOLIN 1 GM in DEXTROSE 5%-WATER - 50 ML IVPB SCH (10:00)
[2018-12-27] MEDS: HEPARIN NA (PORCINE) 5,000 UNITS/ML 1ML VIAL SQ SCH ×2 (10:03→22:07)
[2018-12-27] MEDS: oxyCODONE HCL 5 MG TABLET PO PRN ×2 (10:12→22:13)
--- NOTE | 2018-12-27 12:29 | PN ---
Progress Note, Physician History of Present Illness: stable no new issues patient got aspirated last night feels better - Current Medication List Current Medications: Active Medications Acetaminophen (Tylenol -) 650 mg PO Q6H PRN PRN Reason: FEVER Fentanyl (Sublimaze Injection -) 50 mcg IVPUSH [id number] PRN PRN Reason: PAIN-PACU ORDER X 4 DOSES ONLY Heparin Sodium (Porcine) (Heparin -) 5,000 unit SQ BID [facility] Last Admin: 12/27/18 10:03 Dose: 5,000 unit Hydromorphone HCl (Dilaudid Vial -) 2 mg IVPB Q4H PRN PRN Reason: PAIN 4-8 Last Admin: 12/27/18 03:07 Dose: 2 mg Lactated Ringer's (Lactated Ringers Solution) 1,000 mls @ 75 mls/hr IV [facility] Last Admin: 12/26/18 21:40 Dose: 0 mls Ondansetron HCl (Zofran Injection) 4 mg IVPUSH Q6H PRN PRN Reason: NAUSEA AND/OR VOMITING Oxycodone HCl (Roxicodone -) 5 mg PO Q4H PRN PRN Reason: PAIN LEVEL 1-3 Last Admin: 12/27/18 10:12 Dose: 5 mg - Objective Vital Signs: Vital Signs Temperature 98.4 F 12/27/18 06:00 Pulse Rate 58 L 12/27/18 06:00 Respiratory Rate 20 12/27/18 06:00 Blood Pressure 116/58 L 12/27/18 06:00 O2 Sat by Pulse Oximetry (%) 98 12/26/18 21:50 Constitutional: Yes: No Distress, Calm Cardiovascular: Yes: Regular Rate and Rhythm Respiratory: Yes: Regular, CTA Bilaterally Gastrointestinal: Yes: Normal Bowel Sounds, Soft Musculoskeletal: Yes: WNL Extremities: Yes: Other Wound/Incision: Yes: Dressing Dry and Intact Neurological: Yes: Alert, Oriented Psychiatric: Yes: Alert, Oriented Labs: CBC, BMP 12/26/18 08:27 12/26/18 08:27 Assessment/Plan patient doing post op well no issues await for cx report continue iv abx wound care rest as per the team
[2018-12-27] MEDS: CEFAZOLIN 1 GM/D5W 1 GM/50 ML BAG IVPB SCH (17:18)
--- NOTE | 2018-12-27 17:43 | PN ---
Progress Note, Physician - Current Medication List Current Medications: Active Medications Acetaminophen (Tylenol -) 650 mg PO Q6H PRN PRN Reason: FEVER Fentanyl (Sublimaze Injection -) 50 mcg IVPUSH [id number] PRN PRN Reason: PAIN-PACU ORDER X 4 DOSES ONLY Heparin Sodium (Porcine) (Heparin -) 5,000 unit SQ BID [facility] Last Admin: 12/27/18 10:03 Dose: 5,000 unit Hydromorphone HCl (Dilaudid Vial -) 2 mg IVPB Q4H PRN PRN Reason: PAIN 4-8 Last Admin: 12/27/18 15:19 Dose: 2 mg Lactated Ringer's (Lactated Ringers Solution) 1,000 mls @ 75 mls/hr IV ASDIR [facility] Last Admin: 12/26/18 21:40 Dose: 0 mls Cefazolin Sodium (Ancef 1 Gm Premixed Ivpb -) 1 gm in 50 mls @ 100 mls/hr IVPB Q8H-IV [facility] Last Admin: 12/27/18 17:18 Dose: 100 mls/hr Ondansetron HCl (Zofran Injection) 4 mg IVPUSH Q6H PRN PRN Reason: NAUSEA AND/OR VOMITING Oxycodone HCl (Roxicodone -) 5 mg PO Q4H PRN PRN Reason: PAIN LEVEL 1-3 Last Admin: 12/27/18 10:12 Dose: 5 mg - Objective Vital Signs: Vital Signs Temperature 98.2 F 12/27/18 10:00 Pulse Rate 98 H 12/27/18 10:00 Respiratory Rate 20 12/27/18 10:00 Blood Pressure 120/86 12/27/18 10:00 O2 Sat by Pulse Oximetry (%) 98 12/27/18 09:00 Constitutional: Yes: No Distress HENT: Yes: Atraumatic Neck: Yes: Supple Cardiovascular: Yes: Regular Rate and Rhythm Respiratory: Yes: CTA Bilaterally Gastrointestinal: Yes: Normal Bowel Sounds Extremities: Yes: Other (R foot in dressing) Neurological: Yes: Alert, Oriented Labs: CBC, BMP 12/26/18 08:27 12/26/18 08:27 Problem List - Problems (1) Infection (chronic) of amputation stump Assessment/Plan: s/p aspiration of abcess on iv bax prn pain meds Code(s): T87.40 - INFECTION OF AMPUTATION STUMP, UNSPECIFIED EXTREMITY (2) Nasal congestion Code(s): R09.81 - NASAL CONGESTION
[2018-12-28] MEDS: CEFAZOLIN 1 GM/D5W 1 GM/50 ML BAG IVPB SCH ×4 (01:27→17:22)
[2018-12-28] MEDS: HYDROmorphone HCl 2 MG/ML VIAL IVPB PRN ×4 (02:07→16:49)
[2018-12-28] MEDS: HEPARIN NA (PORCINE) 5,000 UNITS/ML 1ML VIAL SQ SCH ×2 (10:11→22:04)
[2018-12-28 12:31] LABS: BASO % 0.8 % (0-2.0); EOS % 4.2 % (0-4.5); HEMATOCRIT 41.5 % (35.4-49); HEMOGLOBIN 13.8 GM/dL (11.7-16.9); LYMPH % 39.1 % (8-40); MCH 29.3 pg (25.7-33.7); MCHC 33.3 g/dl (32.0-35.9); MEAN PLT VOLUME 9.4 fl (7.5-11.1); MONO % 9.9 % (3.8-10.2); PLATELET COUNT 296 K/MM3 (134-434); RBC 4.71 M/mm3 (4.00-5.60); RDW 13.3 % (11.9-15.9); WHITE BLOOD COUNT 8.3 K/mm3 (4.0-10.0)
--- NOTE | 2018-12-28 12:44 | PN ---
Progress Note, Physician - Current Medication List Current Medications: Active Medications Acetaminophen (Tylenol -) 650 mg PO Q6H PRN PRN Reason: FEVER Fentanyl (Sublimaze Injection -) 50 mcg IVPUSH [id number] PRN PRN Reason: PAIN-PACU ORDER X 4 DOSES ONLY Heparin Sodium (Porcine) (Heparin -) 5,000 unit SQ BID [facility] Last Admin: 12/28/18 10:11 Dose: 5,000 unit Hydromorphone HCl (Dilaudid Vial -) 2 mg IVPB Q4H PRN PRN Reason: PAIN 4-8 Last Admin: 12/28/18 12:33 Dose: 2 mg Cefazolin Sodium (Ancef 1 Gm Premixed Ivpb -) 1 gm in 50 mls @ 100 mls/hr IVPB Q8H-IV [facility] Last Admin: 12/28/18 10:09 Dose: 100 mls/hr Ondansetron HCl (Zofran Injection) 4 mg IVPUSH Q6H PRN PRN Reason: NAUSEA AND/OR VOMITING Oxycodone HCl (Roxicodone -) 5 mg PO Q4H PRN PRN Reason: PAIN LEVEL 1-3 Last Admin: 12/27/18 22:13 Dose: 5 mg - Objective Vital Signs: Vital Signs Temperature 98.7 F 12/28/18 05:15 Pulse Rate 90 12/28/18 05:15 Respiratory Rate 20 12/28/18 05:15 Blood Pressure 140/78 12/28/18 05:15 O2 Sat by Pulse Oximetry (%) 98 12/27/18 09:00 Constitutional: Yes: No Distress HENT: Yes: Atraumatic Neck: Yes: Supple Cardiovascular: Yes: Regular Rate and Rhythm Respiratory: Yes: CTA Bilaterally Extremities: Yes: Other (R foot in dressing) Neurological: Yes: Alert, Oriented Labs: CBC, BMP 12/28/18 11:30 Problem List - Problems (1) Infection (chronic) of amputation stump Assessment/Plan: s/p aspiration of abcess on iv bax prn pain meds Code(s): T87.40 - INFECTION OF AMPUTATION STUMP, UNSPECIFIED EXTREMITY (2) Nasal congestion Code(s): R09.81 - NASAL CONGESTION
[2018-12-28 12:59] LABS: ALBUMIN 3.3 g/dl (3.4-5.0); BILIRUBIN,TOTAL 0.2 mg/dL (0.2-1); BLOOD UREA NITROGEN 8.1 mg/dL (7-18); CREATININE 0.9 mg/dL (0.55-1.3); POTASSIUM 4.7 mmol/L (3.5-5.1); TOT PROT 6.9 g/dl (6.4-8.2)
--- NOTE | 2018-12-28 13:59 | PN ---
Progress Note, Physician Chief Complaint: 33 y/o post op right foot I and D. Feeling much better. Up in bed. Complains of lower back pain. Denies any f/c/n/v/sob. - Current Medication List Current Medications: Active Medications Acetaminophen (Tylenol -) 650 mg PO Q6H PRN PRN Reason: FEVER Fentanyl (Sublimaze Injection -) 50 mcg IVPUSH [id number] PRN PRN Reason: PAIN-PACU ORDER X 4 DOSES ONLY Heparin Sodium (Porcine) (Heparin -) 5,000 unit SQ BID [facility] Last Admin: 12/28/18 10:11 Dose: 5,000 unit Hydromorphone HCl (Dilaudid Vial -) 2 mg IVPB Q4H PRN PRN Reason: PAIN 4-8 Last Admin: 12/28/18 12:33 Dose: 2 mg Cefazolin Sodium (Ancef 1 Gm Premixed Ivpb -) 1 gm in 50 mls @ 100 mls/hr IVPB Q8H-IV [facility] Last Admin: 12/28/18 10:09 Dose: 100 mls/hr Ondansetron HCl (Zofran Injection) 4 mg IVPUSH Q6H PRN PRN Reason: NAUSEA AND/OR VOMITING Oxycodone HCl (Roxicodone -) 5 mg PO Q4H PRN PRN Reason: PAIN LEVEL 1-3 Last Admin: 12/27/18 22:13 Dose: 5 mg - Objective Vital Signs: Vital Signs Temperature 97.8 F 12/28/18 10:00 Pulse Rate 88 12/28/18 10:00 Respiratory Rate 18 12/28/18 10:00 Blood Pressure 136/78 12/28/18 10:00 O2 Sat by Pulse Oximetry (%) 98 12/27/18 09:00 Constitutional: Yes: Well Nourished Extremities: Yes: Other (right incison site intact with sutures, some keratosis and hardening of the distal flap site noted, no further erythema and much decreased, no drainage, no pain on palpation, edema decreased, no signs of residual infection) Labs: CBC, BMP 12/28/18 11:30 12/28/18 11:36 Assessment/Plan 33 y/o s/p right foot I and D P: Evaluated and reviewed Discussed with Sixto; MRSA seen Will need Iv abx per ID for length Incision site healing well but concern for long wall shear operator survivability of the flap discussed with patient upon d/c would recc follow up with [facility] but also highly recc follow up with plastic surgeon in [facility] who did primary free flap. He understands While admitted can change with wet to dry daily and then leave c/d/i upon d/c until follow up. Wound stable from podiatry standpoint.
[2018-12-28] MEDS: oxyCODONE HCL 5 MG TABLET PO PRN (19:47)
[2018-12-28] MEDS: VANCOMYCIN 1 GRAM (PRE-DOCKED) 1,000 MG/250 ML BAG IVPB SCH (20:33)
[2018-12-29] MEDS: HEPARIN NA (PORCINE) 5,000 UNITS/ML 1ML VIAL SQ SCH ×2 (09:28→21:12)
[2018-12-29] MEDS: VANCOMYCIN 1 GRAM (PRE-DOCKED) 1,000 MG/250 ML BAG IVPB SCH ×2 (09:28→21:12)
[2018-12-29] MEDS: HYDROmorphone HCl 2 MG/ML VIAL IVPB PRN ×2 (11:24→15:21)
[2018-12-29] MEDS: oxyCODONE HCL 5 MG TABLET PO PRN ×2 (14:15→21:20)
[2018-12-29] MEDS ORDERED: AZITHROMYCIN 500 MG TABLET PO ONE (15:19)
--- NOTE | 2018-12-29 15:19 | PN ---
Progress Note, Physician History of Present Illness: Pt is alert, without acute distress. Has been complaining of cough. Reports hemoptysis yesterday but none today. [place] better after breathing treatment. Remains afebrile. No other complaints. Pain in LE controlled. - Current Medication List Current Medications: Active Medications Acetaminophen (Tylenol -) 650 mg PO Q6H PRN PRN Reason: FEVER Fentanyl (Sublimaze Injection -) 50 mcg IVPUSH [id number] PRN PRN Reason: PAIN-PACU ORDER X 4 DOSES ONLY Heparin Sodium (Porcine) (Heparin -) 5,000 unit SQ BID [facility] Last Admin: 12/29/18 09:28 Dose: 5,000 unit Hydromorphone HCl (Dilaudid Vial -) 2 mg IVPB Q4H PRN PRN Reason: PAIN 4-8 Last Admin: 12/29/18 11:24 Dose: 2 mg Vancomycin HCl (Vancomycin (Pre-Docked)) 1,000 mg in 250 mls @ 166.667 mls/hr IVPB Q12H [facility]; Protocol Last Admin: 12/29/18 09:28 Dose: 166.667 mls/hr Ondansetron HCl (Zofran Injection) 4 mg IVPUSH Q6H PRN PRN Reason: NAUSEA AND/OR VOMITING Oxycodone HCl (Roxicodone -) 5 mg PO Q4H PRN PRN Reason: PAIN LEVEL 1-3 Last Admin: 12/29/18 14:15 Dose: 5 mg - Objective Vital Signs: Vital Signs Temperature 98.7 F 12/29/18 14:53 Pulse Rate 98 H 12/29/18 14:53 Respiratory Rate 20 12/29/18 05:03 Blood Pressure 107/70 12/29/18 14:53 O2 Sat by Pulse Oximetry (%) 98 12/27/18 09:00 Constitutional: Yes: No Distress, Calm Eyes: Yes: Conjunctiva Clear HENT: Yes: WNL Cardiovascular: Yes: Regular Rate and Rhythm Respiratory: Yes: CTA Bilaterally Gastrointestinal: Yes: Normal Bowel Sounds, Soft Genitourinary: Yes: WNL Extremities: Yes: WNL Wound/Incision: Yes: Dressing Dry and Intact Labs: CBC, BMP 12/28/18 11:30 12/28/18 11:36 Microbiology 12/25/18 14:15 Blood - Peripheral Venous Blood Culture - Preliminary NO GROWTH OBTAINED AFTER 96 HOURS, INCUBATION TO CONTINUE FOR 1 DAYS. 12/25/18 14:00 Blood - Peripheral Venous Blood Culture - Preliminary NO GROWTH OBTAINED AFTER 96 HOURS, INCUBATION TO CONTINUE FOR 1 DAYS. 12/26/18 20:45 Foot - Right Gram Stain - Final 12/26/18 20:45 Foot - Right Wound Culture - Final Mr S Aureus - ....Imaging MRI: Report Reviewed Problem List - Problems (1) Infection (chronic) of amputation stump Code(s): T87.40 - INFECTION OF AMPUTATION STUMP, UNSPECIFIED EXTREMITY Assessment/Plan RLE / amp site abscess s/p I+D Cough/ Possible Acute bronchitis -- Pt is afebrile, without distress -- reports hemoptysis yesterday but none today, has yellow/green sputum/ persistent cough -- Wound cultures noted +MRSA, Antibiotics were changed to Vancomycin IV yesterday -- will add azithromycin po , monitor for further hemoptysis and possible need for repeat chest imaging -- Vancomycin trough prior to 4th dose, monitor renal function -- continue wound care Pt currently stable
[2018-12-29] MEDS ORDERED: AZITHROMYCIN 250 MG TABLET PO ONE (16:30)
--- NOTE | 2018-12-29 16:56 | PN ---
Progress Note, Physician - Current Medication List Current Medications: Active Medications Acetaminophen (Tylenol -) 650 mg PO Q6H PRN PRN Reason: FEVER Azithromycin (Zithromax -) 250 mg PO DAILY [facility] Stop: 01/02/19 10:01 Fentanyl (Sublimaze Injection -) 50 mcg IVPUSH [id number] PRN PRN Reason: PAIN-PACU ORDER X 4 DOSES ONLY Heparin Sodium (Porcine) (Heparin -) 5,000 unit SQ BID [facility] Last Admin: 12/29/18 09:28 Dose: 5,000 unit Hydromorphone HCl (Dilaudid Vial -) 2 mg IVPB Q4H PRN PRN Reason: PAIN 4-8 Last Admin: 12/29/18 15:21 Dose: 2 mg Vancomycin HCl (Vancomycin (Pre-Docked)) 1,000 mg in 250 mls @ 166.667 mls/hr IVPB Q12H [facility]; Protocol Last Admin: 12/29/18 09:28 Dose: 166.667 mls/hr Ondansetron HCl (Zofran Injection) 4 mg IVPUSH Q6H PRN PRN Reason: NAUSEA AND/OR VOMITING Oxycodone HCl (Roxicodone -) 5 mg PO Q4H PRN PRN Reason: PAIN LEVEL 1-3 Last Admin: 12/29/18 14:15 Dose: 5 mg - Objective Vital Signs: Vital Signs Temperature 98.7 F 12/29/18 14:53 Pulse Rate 98 H 12/29/18 14:53 Respiratory Rate 20 12/29/18 05:03 Blood Pressure 107/70 12/29/18 14:53 O2 Sat by Pulse Oximetry (%) 98 12/27/18 09:00 Constitutional: Yes: No Distress HENT: Yes: Atraumatic Neck: Yes: Supple Cardiovascular: Yes: Regular Rate and Rhythm Respiratory: Yes: CTA Bilaterally Gastrointestinal: Yes: Normal Bowel Sounds Extremities: Yes: Other (R foot/stump in dressing) Edema: No Neurological: Yes: Alert, Oriented Labs: CBC, BMP 12/28/18 11:30 12/28/18 11:36 Problem List - Problems (1) Infection (chronic) of amputation stump Assessment/Plan: s/p aspiration of abcess on iv bax prn pain meds Code(s): T87.40 - INFECTION OF AMPUTATION STUMP, UNSPECIFIED EXTREMITY (2) Nasal congestion Code(s): R09.81 - NASAL CONGESTION
[2018-12-29] MEDS: morphine SULFATE 4 MG/ML VIAL IVPUSH PRN (19:38)
[2018-12-29] MEDS: ACETAMINOPHEN 325 MG TABLET (FP) PO PRN (21:20)
[2018-12-30] MEDS: morphine SULFATE 4 MG/ML VIAL IVPUSH PRN ×3 (04:01→21:47)
[2018-12-30] MEDS: AZITHROMYCIN 250 MG TABLET PO SCH (09:38)
[2018-12-30] MEDS: HEPARIN NA (PORCINE) 5,000 UNITS/ML 1ML VIAL SQ SCH ×2 (09:38→21:48)
[2018-12-30] MEDS: VANCOMYCIN 1 GRAM (PRE-DOCKED) 1,000 MG/250 ML BAG IVPB SCH ×2 (09:45→22:16)
--- NOTE | 2018-12-30 11:07 | PN ---
Progress Note, Physician History of Present Illness: stable no new - Current Medication List Current Medications: Active Medications Acetaminophen (Tylenol -) 650 mg PO Q6H PRN PRN Reason: FEVER Last Admin: 12/29/18 21:20 Dose: 650 mg Azithromycin (Zithromax -) 250 mg PO DAILY [facility] Stop: 01/02/19 10:01 Last Admin: 12/30/18 09:38 Dose: 250 mg Fentanyl (Sublimaze Injection -) 50 mcg IVPUSH [id number] PRN PRN Reason: PAIN-PACU ORDER X 4 DOSES ONLY Heparin Sodium (Porcine) (Heparin -) 5,000 unit SQ BID [facility] Last Admin: 12/30/18 09:38 Dose: 5,000 unit Vancomycin HCl (Vancomycin (Pre-Docked)) 1,000 mg in 250 mls @ 166.667 mls/hr IVPB Q12H [facility]; Protocol Last Admin: 12/29/18 21:12 Dose: 166.667 mls/hr Morphine Sulfate (Morphine Sulfate) 3 mg IVPUSH Q4H PRN PRN Reason: PAIN LEVEL 7-10 Last Admin: 12/30/18 09:37 Dose: 3 mg Ondansetron HCl (Zofran Injection) 4 mg IVPUSH Q6H PRN PRN Reason: NAUSEA AND/OR VOMITING Oxycodone HCl (Roxicodone -) 10 mg PO Q6H PRN PRN Reason: PAIN LEVEL 4 - 6 Last Admin: 12/29/18 21:20 Dose: 10 mg - Objective Vital Signs: Vital Signs Temperature 97.9 F 12/30/18 05:00 Pulse Rate 48 L 12/30/18 05:00 Respiratory Rate 20 12/29/18 05:03 Blood Pressure 101/51 L 12/30/18 05:00 O2 Sat by Pulse Oximetry (%) 98 12/27/18 09:00 Constitutional: Yes: No Distress, Calm Cardiovascular: Yes: S1, S2 Respiratory: Yes: Regular, CTA Bilaterally Gastrointestinal: Yes: Normal Bowel Sounds, Soft Musculoskeletal: Yes: WNL Extremities: Yes: WNL Wound/Incision: Yes: Dressing Dry and Intact Neurological: Yes: Alert, Oriented Psychiatric: Yes: Alert, Oriented Labs: CBC, BMP 12/28/18 11:30 12/28/18 11:36 Assessment/Plan Problem List - Problems (1) Infection (chronic) of amputation stump Code(s): T87.40 - INFECTION OF AMPUTATION STUMP, UNSPECIFIED EXTREMITY Assessment/Plan RLE / amp site abscess s/p I+D Cough/ Possible Acute bronchitis plan continue current abx monitor cough rest as per the team
[2018-12-30] MEDS: oxyCODONE HCL 5 MG TABLET PO PRN (11:47)
[2018-12-30] MEDS ORDERED: PT OWN MED DRAWER 7, Y5N ONE (14:36)
--- NOTE | 2018-12-30 15:45 | PN ---
Progress Note (short form) - Note Progress Note: Podiatry F/U: Seen/evaluated at bedside NAD. Pain controlled, denies F/V/N/C/SOB/CP. Afebrile. S/p right foot incision and drainage of abscess. BHAVANA: R foot: pedal pulses palpable, TG wnl. Sutures well coapted along plantar incision, no dehiscence noted, no purulent drainage, no fluctuance, no soft tissue crepitus no streaking cellulitis, no signs of acute infection. Moderate tenderness on palpation. OR Cx: MRSA Imp: 33 year old male s/p right foot incision and drainage of abscess 1. Abx per infectious disease 2. DSD R foot 3. Nonweightbearing right foot 4. Podiatry stable for discharge. Can f/u in office with Dr. Pimentel or with myself in wound healing center in 1 week. Jeri Boyce DPM
--- NOTE | 2018-12-30 19:13 | PN ---
Progress Note, Physician - Current Medication List Current Medications: Active Medications Acetaminophen (Tylenol -) 650 mg PO Q6H PRN PRN Reason: FEVER Last Admin: 12/29/18 21:20 Dose: 650 mg Azithromycin (Zithromax -) 250 mg PO DAILY [facility] Stop: 01/02/19 10:01 Last Admin: 12/30/18 09:38 Dose: 250 mg Fentanyl (Sublimaze Injection -) 50 mcg IVPUSH [id number] PRN PRN Reason: PAIN-PACU ORDER X 4 DOSES ONLY Heparin Sodium (Porcine) (Heparin -) 5,000 unit SQ BID [facility] Last Admin: 12/30/18 09:38 Dose: 5,000 unit Vancomycin HCl (Vancomycin (Pre-Docked)) 1,000 mg in 250 mls @ 166.667 mls/hr IVPB Q12H [facility]; Protocol Last Admin: 12/30/18 09:45 Dose: 166.667 mls/hr Morphine Sulfate (Morphine Sulfate) 3 mg IVPUSH Q4H PRN PRN Reason: PAIN LEVEL 7-10 Last Admin: 12/30/18 09:37 Dose: 3 mg Ondansetron HCl (Zofran Injection) 4 mg IVPUSH Q6H PRN PRN Reason: NAUSEA AND/OR VOMITING Oxycodone HCl (Roxicodone -) 10 mg PO Q6H PRN PRN Reason: PAIN LEVEL 4 - 6 Last Admin: 12/30/18 11:47 Dose: 10 mg - Objective Vital Signs: Vital Signs Temperature 99 F 12/30/18 18:00 Pulse Rate 68 12/30/18 18:00 Respiratory Rate 18 12/30/18 18:00 Blood Pressure 116/76 12/30/18 18:00 O2 Sat by Pulse Oximetry (%) 95 12/30/18 09:00 Constitutional: Yes: No Distress HENT: Yes: Atraumatic Neck: Yes: Supple Cardiovascular: Yes: Regular Rate and Rhythm Respiratory: Yes: CTA Bilaterally Gastrointestinal: Yes: Normal Bowel Sounds Extremities: Yes: Other (R foot/stump in dressing) Neurological: Yes: Alert, Oriented Labs: CBC, BMP 12/28/18 11:30 12/28/18 11:36 Problem List - Problems (1) Infection (chronic) of amputation stump Assessment/Plan: s/p aspiration of abcess on iv bax prn pain meds Code(s): T87.40 - INFECTION OF AMPUTATION STUMP, UNSPECIFIED EXTREMITY (2) Nasal congestion Code(s): R09.81 - NASAL CONGESTION
[2018-12-31] MEDS: oxyCODONE HCL 5 MG TABLET PO PRN (09:03)
[2018-12-31] MEDS: VANCOMYCIN 1 GRAM (PRE-DOCKED) 1,000 MG/250 ML BAG IVPB SCH (09:04)
[2018-12-31] MEDS: AZITHROMYCIN 250 MG TABLET PO SCH (10:45)
[2018-12-31] MEDS: HEPARIN NA (PORCINE) 5,000 UNITS/ML 1ML VIAL SQ SCH (10:45)
--- NOTE | 2018-12-31 12:26 | PN ---
Progress Note, Physician History of Present Illness: patient stable no new issues - Current Medication List Current Medications: Active Medications Acetaminophen (Tylenol -) 650 mg PO Q6H PRN PRN Reason: FEVER Last Admin: 12/29/18 21:20 Dose: 650 mg Azithromycin (Zithromax -) 250 mg PO DAILY [facility] Stop: 01/02/19 10:01 Last Admin: 12/31/18 10:45 Dose: 250 mg Fentanyl (Sublimaze Injection -) 50 mcg IVPUSH [id number] PRN PRN Reason: PAIN-PACU ORDER X 4 DOSES ONLY Heparin Sodium (Porcine) (Heparin -) 5,000 unit SQ BID [facility] Last Admin: 12/31/18 10:45 Dose: 5,000 unit Vancomycin HCl (Vancomycin (Pre-Docked)) 1,000 mg in 250 mls @ 166.667 mls/hr IVPB Q12H [facility]; Protocol Last Admin: 12/31/18 09:04 Dose: 166.667 mls/hr Morphine Sulfate (Morphine Sulfate) 3 mg IVPUSH Q4H PRN PRN Reason: PAIN LEVEL 7-10 Last Admin: 12/30/18 21:47 Dose: 3 mg Ondansetron HCl (Zofran Injection) 4 mg IVPUSH Q6H PRN PRN Reason: NAUSEA AND/OR VOMITING Oxycodone HCl (Roxicodone -) 10 mg PO Q6H PRN PRN Reason: PAIN LEVEL 4 - 6 Last Admin: 12/31/18 09:03 Dose: 10 mg - Objective Vital Signs: Vital Signs Temperature 98 F 12/31/18 06:00 Pulse Rate 56 L 12/31/18 06:00 Respiratory Rate 18 12/31/18 06:00 Blood Pressure 105/54 L 12/31/18 06:00 O2 Sat by Pulse Oximetry (%) 95 12/30/18 21:00 Constitutional: Yes: No Distress, Calm Cardiovascular: Yes: Regular Rate and Rhythm Respiratory: Yes: Regular, CTA Bilaterally Gastrointestinal: Yes: Normal Bowel Sounds, Soft Musculoskeletal: Yes: WNL Extremities: Yes: WNL Neurological: Yes: Alert, Oriented Psychiatric: Yes: Alert, Oriented Labs: CBC, BMP 12/28/18 11:30 12/28/18 11:36 Assessment/Plan Problem List - Problems (1) Infection (chronic) of amputation stump Code(s): T87.40 - INFECTION OF AMPUTATION STUMP, UNSPECIFIED EXTREMITY Assessment/Plan RLE / amp site abscess s/p I+D Cough/ Possible Acute bronchitis plan continue current abx monitor cough rest as per the team await for podiatry to see the patient and give final recommendations
[2018-12-31] MEDS: ACETAMINOPHEN 325 MG TABLET (FP) PO PRN (14:09)
[2018-12-31 18:36] VITALS: BP 135/73; PULSE 73; TEMP 98.6
--- NOTE | 2018-12-31 19:06 | DS ---
Physical Examination Vital Signs: Vital Signs Temperature 98.6 F 12/31/18 18:00 Pulse Rate 73 12/31/18 18:00 Respiratory Rate 20 12/31/18 18:00 Blood Pressure 135/73 12/31/18 18:00 O2 Sat by Pulse Oximetry (%) 96 12/31/18 09:00 Constitutional: Yes: No Distress HENT: Yes: Atraumatic Neck: Yes: Supple Cardiovascular: Yes: Regular Rate and Rhythm Respiratory: Yes: CTA Bilaterally Gastrointestinal: Yes: Normal Bowel Sounds Extremities: Yes: Other (R foot/stump in dressing) Labs: CBC, BMP 12/28/18 11:30 12/28/18 11:36 Discharge Summary Problems reviewed: Yes Reason For Visit: CHRONIC INFECTION OF AMPUTATION STUMP Current Active Problems Infection (chronic) of amputation stump (Acute) Condition: Stable - Instructions Diet, Activity, Other Instructions: wound care fu dressing change Referrals: Daryl Henson MD [Staff Physician] - Foster Boyce MD [Staff Physician] - - Home Medications Comprehensive Discharge Medication List: Ambulatory Orders Doxycycline Hyclate 100 mg PO BID #28 tablet 12/31/18 Prescription Drug Monitoring Program (I-STOP) results: I-STOP reviewed and no issues identified
[2018-12-31] MEDS ORDERED: DOXYCYCLINE HYCLATE 100 MG CAPSULE PO ONE (19:28)
== END 2018-12-31 21:21 | disposition home or self-care (01) | DRG 317 ==
LOC: JER 12:59 → JERBED 18:05 → J6S 22:42 → J5S 12-30 15:21
PROVIDERS: ADMIT Internal Medicine; ATTEND Internal Medicine
PROC: 3E10X8Z Irrigation of Skin and Mucous Membranes using Irrigating Substance (ICD-10-PCS; 2018-12-26)
PROC: 0J9Q0ZZ Drainage of Right Foot Subcutaneous Tissue and Fascia, Open Approach (ICD-10-PCS; principal; 2018-12-26 20:00)
DX: T87.43 Infection of amputation stump, right lower extremity (principal); L02.611 Cutaneous abscess of right foot; L03.115 Cellulitis of right lower limb; M25.571 Pain in right ankle and joints of right foot; R09.81 Nasal congestion; Y83.8 Other surgical procedures as the cause of abnormal reaction of the patient, or of later complication, without mention of misadventure at the time of the procedure; J20.9 Acute bronchitis, unspecified
CPT/HCPCS: 36415; 71045-TC-FY; 73590-TC-RT-FY; 73610-TC-RT-FY; 73630-TC-RT-FY; 73700-TC-RT; 73719; 80053; 85025; 85379; 85651; 86140; 87040; 87070; 87186; 87205; 93005; 93010; 94760; 99285-25; A9579; G0480; J1644; J7030

== ENCOUNTER 2022-05-14 12:23 | Emergency (ER) | payer OTHER ==
[2022-05-14 12:36] VITALS: BP 114/77; PULSE 91; RESP 18; TEMP 98.1; BMI 26.3
[2022-05-14 14:28] LABS: EOS % 1.7 % (0-4.5); HEMATOCRIT 44.6 % (35.4-49); HEMOGLOBIN 15.5 GM/dL (11.7-16.9); LYMPH % 17.5 % (8-40); MCH 29.9 pg (25.7-33.7); MCHC 34.7 g/dl (32.0-35.9); MEAN CELL VOLUME 86.2 fl (80-96); MEAN PLT VOLUME 9.1 fl (7.5-11.1); MONO % 7.9 % (3.8-10.2); NEUT % 69.9 % (42.8-82.8); PLATELET COUNT 240 10^3/uL (134-434); RBC 5.17 M/mm3 (4.00-5.60); RDW 13.6 % (11.9-15.9); WHITE BLOOD COUNT 7.6 K/mm3 (4.0-10.0)
[2022-05-14 14:51] LABS: ALBUMIN 3.5 g/dl (3.4-5.0); BLOOD UREA NITROGEN 14.2 mg/dL (7-18); CALCIUM 8.9 mg/dL (8.5-10.1)
[2022-05-14 14:56] LABS: BILIRUBIN,TOTAL 0.4 mg/dL (0.2-1)
[2022-05-14] MEDS ORDERED: KETOROLAC TROMETHAMINE 30 MG/1 ML VIAL ONE (16:52)
[2022-05-14] MEDS ORDERED: DEXAMETHASONE SOD PHOSPHATE 10 MG/1 ML VIAL ONE (16:54)
[2022-05-14] MEDS ORDERED: SODIUM CHLORIDE 0.9% 500 ML INFUS.BAG IV ONE (16:56)
[2022-05-14] MEDS ORDERED: KETOROLAC TROMETHAMINE 30 MG/1 ML VIAL IVPUSH ONE (16:56)
[2022-05-14] MEDS ORDERED: DEXAMETHASONE SOD PHOSPHATE 10 MG/1 ML VIAL IVPUSH ONE (16:56)
[2022-05-14] MEDS ORDERED: CEFTRIAXONE 1,000 MG in DEXTROSE 5%-WATER - 50 ML IVPB ONE (17:09)
[2022-05-14] MEDS ORDERED: CEFTRIAXONE 1 GM/50 ML BAG ONE (17:12)
== END 2022-05-14 18:40 | disposition home or self-care (01) ==
LOC: JERFT 12:23
PROC: 3E033GC Introduction of Other Therapeutic Substance into Peripheral Vein, Percutaneous Approach (ICD-10-PCS; principal; 2022-05-14)
DX: J36 Peritonsillar abscess (principal)
CPT/HCPCS: 0241U-QW; 36415; 70491-TC; 80053; 85025; 99285-25; J1100